=== PATIENT | male | born 2000 | race Caucasian/White ===

== ENCOUNTER 2022-10-16 21:08 | Emergency (ER) | payer BC, SELFPAY ==
--- NOTE | 2022-10-16 21:15 | DI.RAD_ITS ---
Exam(s) XR ANKLE RT COMPLETE EXAM: XR ANKLE RT COMPLETE CLINICAL HISTORY: swelling at lat mal, r/o fx. TECHNIQUE: 2D digital imaging was performed of the right ankle. Three images were obtained. AP, la teral and oblique views were obtained. COMPARISON: No exams were available for comparison FINDINGS: BONES: No acute fracture is present. No bony destructive lesion is seen. JOINTS: The ankle mortise is normally aligned. SOFT TISSUE: There is soft tissue swelling around the ankle particularly laterally. IMPRESSION: No acute fracture or dislocation. DATA REPOSITORY: RADIATION DOSE DELIVERED:
[2022-10-16 21:19] VITALS: BP 140/87; PULSE 122; RESP 18; O2SAT 97
--- NOTE | 2022-10-16 22:04 | DI.VRAD_ITS ---
PROCEDURE INFORMATION: Exam: XR Right Ankle Exam date and time: 10/16/2022 9:43 PM Age: 22 years old Clinical indication: Injury or trauma; Fall; Blunt trauma; Ankle; Right; Injury date: 10/16/22; Additional info: Right ankle injury TECHNIQUE: Imaging protocol: Radiologic exam of the Right ankle. Views: 3 or more views. COMPARISON: No relevant prior studies available. FINDINGS: Bones/joints: No acute fracture or dislocation. Os trigonum noted Soft tissues: Moderate swelling surrounding the ankle IMPRESSION: Soft tissue swelling. No discrete fracture Dictated and Authenticated by: Robert Andrade MD. Ordering:TALHA Teixeira MD
--- NOTE | 2022-10-16 22:20 | ED.GENADUL_ITS ---
Discharge Plan Disposition Patient Disposition: Home Condition: Good Discharge Details Clinical Impression: Right ankle sprain Primary Care Provider: Nicki Koch ED Provider: Puneet Mcgraw Home Meds and New Rx's Prescriptions: No Action loratadine 10 mg Tablet 10 mg PO DAILY PRN Discharge Instructions Instructions: Ankle Sprain (ED) Additional Instructions: At this time there is no evidence of fracture in your ankle. It is notably sprained. Please use the ankle brace once her swelling has gone down, and use the crutches in the meantime. Remain nonweightbearing on your ankle for the next few days, then gradually transition to weightbearing as tolerated. Take Tylenol, Motrin and ice as needed for pain. If you notice any worsening of your symptoms, or any new symptoms such as vomiting, diarrhea, fever, chills, shortness of breath, chest pain, numbness, weakness, or fainting , please return immediately to the emergency department for reevaluation. Please follow up with your primary care provider as soon as possible for reassessment and reevaluation. As always, it was a pleasure participating in your medical care today. Referrals: Nicki Koch [Primary Care Provider] - Medical Decision Making 22-year-old male with no significant past medical history presents today for evaluation of right ankle pain. The patient states that he was playing in the gym playing [employer] guns, when his right ankle twisted on another person's foot, he had immediate pain on the lateral aspect. He came to the ER for further evaluation. He describes it as a 9 out of 10 on palpation, but a 4 out of 10 when he is not bearing weight. He denies any other complaints of pain. Pain is only located in the lateral ankle, no pain in the almazan or foot. No numbness or tingling. No other complaints at this time. No other modifying factors. Physical exam demonstrate swelling on the right lateral malleolus. Pain with flexion extension, no pain with eversion though, but mild pain with inversion which is slightly unexpected.. X-ray shows no evidence of acute process or fracture. Ankle is otherwise stable. Will give lace up brace, crutches, recommend Tylenol Motrin and nonweightbearing. Discussed red flags which to return. I have extensively reviewed the treatment plan and discharge instructions with the patient. I have addressed all patient concerns at this time. The patient was made aware of what symptoms to monitor for that would warrant a return to the emergency department. Discussed the plan with the patient, they demonstrate verbal understanding and agreement with our assessment and plan at this time. The documentation in this chart was dictated using [employer] dictation software. Please excuse any dictation errors. FINDINGS: Bones/joints: No acute fracture or dislocation. Os trigonum noted Soft tissues: Moderate swelling surrounding the ankle IMPRESSION: Soft tissue swelling. No discrete fracture Thank you for allowing us to participate in the care of your patient. Dictated and Authenticated by: Robert Andrade MD 10/16/2022 10:04 PM Eastern Time ([place] & [place]) Sign Out No HPI General Date/Time Provider Initiated Documentation: 10/16/22 21:21 . HPI Narrative: 22-year-old male with no significant past medical history presents today for evaluation of right ankle pain. The patient states that he was playing in the gym playing [employer] guns, when his right ankle twisted on another person's foot, he had immediate pain on the lateral aspect. He came to the ER for further evaluation. He describes it as a 9 out of 10 on palpation, but a 4 out of 10 when he is not bearing weight. He denies any other complaints of pain. Pain is only located in the lateral ankle, no pain in the almazan or foot. No numbness or tingling. No other complaints at this time. No other modifying factors. Related Data Home Medications Medication Instructions Recorded Confirmed loratadine 10 mg tablet 10 mg PO DAILY PRN 10/16/22 10/16/22 Allergies Allergy/AdvReac Type Severity Reaction Status Date / Time No Known Allergies Allergy Unverified 10/16/22 21:23 General Stated Complaint: Orthopedic EMILIA: 4 Review of Systems All systems reviewed & are unremarkable except as noted in HPI and below PFSH All Active Problems Right ankle sprain (Acute) Social History Smoking/Tobacco Use Status: Never Smoking risk assessment performed?: Yes Alcohol Intake: never Drug use: Never Substance use type: does not use Exam Narrative Exam Narrative: 1.Const: Well-nourished, Well-developed, appearing stated age 2.Eyes: PERRL, no conjunctival injection, and symmetrical lids. 3.ENT: Atraumatic external nose and ears. Moist MM. Neck: Symmetric, trachea midline, No thyromegaly. 4.CVS: +S1/S2, No murmurs or gallops. Peripheral pulses 2+ and equal in all extremities. Brisk capillary refill in all extremities. 5.RESP: Unlabored respiratory effort. Clear to auscultation bilaterally. No wheezes rales or rhonchi 6.GI: Soft, Nontender/Nondistended, No hepatosplenomegaly. No guarding or rebound. 7.MSK: Normocephalic, right ankle demonstrates swelling and edema on the lateral malleolus, mild pain with flexion and extension, patient actually has lateral malleolus pain with inversion, but no pain with the E version which is slightly unexpected. Neurovascular exam unremarkable distally otherwise. 8.Skin: Warm, Dry. No rashes or lesions. 9.Neuro: warp dresser II-XII grossly intact. Sensation grossly intact, no focal neurologic deficits. 10.Psych: (AAO) x3. Appropriate mood and affect Course Vital Signs Vital signs: Vital Signs Pulse 122 H 10/16/22 21:19 Respiratory Rate 18 10/16/22 21:19 Blood Pressure 140/87 10/16/22 21:19 Pulse Oximetry 97 10/16/22 21:19 Pulse 122 H 10/16/22 21:19 Respiratory Rate 18 10/16/22 21:19 Respiratory Effort Non-Labored 10/16/22 21:24 Blood Pressure 140/87 10/16/22 21:19 Pulse Oximetry 97 10/16/22 21:19 Oxygen Delivery Method Room Air 10/16/22 21:19 Oxygen Flow Rate 0 10/16/22 21:19 Pain Level 4 10/16/22 21:24
== END 2022-10-16 22:35 | disposition home or self-care (01) ==
PROVIDERS: Emergency Provider Student in an Organized Health Care Education/Training Program; PCP Naturopath
DX: S93.401A Sprain of unspecified ligament of right ankle, initial encounter (principal); X50.1XXA Overexertion from prolonged static or awkward postures, initial encounter
CPT/HCPCS: 99283; 73610; 99282